=== PATIENT | male | born 1970 | race Caucasian/White ===

== ENCOUNTER 2017-12-02 20:38 | Emergency (ER) | payer MEDICARE ==
[2015-01-22 07:16] VITALS: BMI 30.9
[~2017-12-02 20:38] MED LIST: BENICAR HCT 40-1 TAB PO; PERCOCET 10/3251 TA1 PO; PREVACID30 MG PO; STRIBILD TABLE1 EACH PO; [UNRECOGNIZED DRUG - OTHER] PO
== END 2017-12-03 01:12 | disposition home or self-care (01) ==
LOC: D.ER 20:38
DX: K64.9 Unspecified hemorrhoids (principal); B20 Human immunodeficiency virus [HIV] disease; I10 Essential (primary) hypertension

== ENCOUNTER → 2020-09-04 13:27 | Outpatient (CLI) | payer BC ==
[2015-01-22 07:16] VITALS: BMI 30.9
--- NOTE | 2020-09-04 14:43 | NUR ---
PATIENT CONSENTED FOR A LEFT SHOULDER ARTHROGRAM WITH MRI TO FOLLOW. TIME OUT PERFORMED AT 1430 BY WILLIAM YANG AND DR GOMES. 12 CC ISOVUE 300 WITH 0.16 MULTIHANCE 10 CC NORMAL SALINE WERE USED DURING THE PROCEDURE. PATIENT HAS NO ALLERGIES AND WAS NOT ON ANY BLOOD THINNERS
== END | disposition home or self-care (01) ==
LOC: D.RAD 13:27
PROVIDERS: ATTEND Orthopaedic Surgery
DX: M87.852 Other osteonecrosis, left femur (principal); S43.432A Superior glenoid labrum lesion of left shoulder, initial encounter

== ENCOUNTER → 2020-09-11 11:44 | Outpatient (CLI) | payer BC ==
[2015-01-22 07:16] VITALS: BMI 30.9
== END | disposition home or self-care (01) ==
LOC: D.LABREF 11:44
PROVIDERS: ATTEND Orthopaedic Surgery
DX: M16.12 Unilateral primary osteoarthritis, left hip (principal)

== ENCOUNTER 2020-09-25 08:54 | Observation (INO) | payer BC, OTHER ==
[~2020-09-25] VITALS: Ht 177.8 cm; Wt 98.0 kg
[2020-10-28] MEDS ORDERED: BIKTARVY 50-201 EACH PO (10:17)
[2020-10-28] MEDS ORDERED: METFORMIN HCL500 M1 PO (10:18)
[2020-10-28] MEDS ORDERED: JANUVIA100 MG PO (10:18)
[2020-10-28] MEDS ORDERED: GLIMEPIRIDE1 MG PO (10:19)
[2020-10-29 13:01] LABS: BASOPHILS 0.5 % (0-2); EOSINOPHILS 2.7 % (0-7); HEMATOCRIT 46.7 % (42.0-54.0); HEMOGLOBIN 15.7 g/dL (13.5-17.5); IMMATURE GRANULOCYTES 0.2 % (0-5); LYMPHOCYTE ABS# 2.08 10x3/uL (1.32-3.57); LYMPHOCYTES 25.3 % (15-50); MCH 30.7 pg (26.0-34.0); MCHC 33.6 g/dL (31.0-37.0); MCV 91.2 fL (80.0-100.0); MEAN PLATELET VOLUME 10.5 fL (7.4-10.4); MONOCYTES 6.6 % (2-11); NEUTROPHIL ABS# 5.31 10x3/uL (1.78-5.38); NEUTROPHILS 64.7 % (40-80); RBC 5.12 10x6/uL (4.20-6.10); RDW 12.9 % (11.5-14.5); WBC 8.2 10x3/uL (4.8-10.8)
[2020-10-29 13:04] LABS: PLATELET COUNT 310 10x3/uL (130-400)
[2020-10-29 13:10] LABS: APTT 27.5 SECONDS (22.8-39.4); INR 0.96 (0.85-1.17); PROTIME 11.8 SECONDS (11.6-15.0)
[2020-10-29 13:11] LABS: CALCIUM 9.7 mg/dL (8.5-10.1); CARBON DIOXIDE 25.8 mmol/L (21.0-32.0); CREATININE - SERUM 1.3 mg/dL (0.6-1.3); POTASSIUM - SERUM 3.8 mmol/L (3.5-5.1)
[2020-10-29 13:34] LABS: BILIRUBIN NEGATIVE (NEGATIVE); KETONE NEGATIVE (NEGATIVE); NITRITE NEGATIVE (NEGATIVE); UROBILINOGEN NORMAL mg/dL (< 2)
[2020-11-04] VITALS (14 sets, daily range): BP systolic 86–142; BP diastolic 41–89; BMI 31.0
--- NOTE | 2020-11-04 09:42 | NUR ---
PT OPERATIVE LEG CLEANSED WITH HIBECLENS AND ALCOHOL FROM ABOVE HIP TO CALF CIRCUMFERENTIALLY PRIOR TO PREP. PREPPED WITH CHLORAPREP X2 FROM ABOVE HIP TO CALF CIRCUMFERENTIALLY. RN IN STERILE ATTIRE TO PREP. AFTER STERILE DRAPES APPLIED, OPERATIVE SITE CHLORAPREPPED AGAIN. PLASMA BLADE SET TO 6/8 GROUNDING PAD RIGHT FLANK TRAFFIC KEPT TO MINIMUM IN ROOM
--- NOTE | 2020-11-04 11:10 | NUR ---
RECEIVED TO ROOM 1211 FROM PACU. A/O X3. AROUSES EASILY TO VERBAL STIMULATION. DRESSING TO LEFT HIP IS DRY AND INTACT. KESHA'S IN PLACE. DENIES NEEDS.
--- NOTE | 2020-11-04 15:51 | NUR ---
SIGNIFICANT OTHER BROUGHT FOOD IN. ATE ALL OF MEAL. DENIES NEEDS.
--- NOTE | 2020-11-04 16:33 | NUR ---
AMBULATED 50 FEET WITH RW AND MIN ASSIST OF ONE. NO C/O INCREASED PAIN WITH ACTIVITY. SITTING UP ON SIDE OF BED AT THIS TIME.
--- NOTE | 2020-11-04 17:55 | MORECARE ---
CASE MANAGEMENT DISCHARGE SUMMARY PATIENT: MAURA LICONA UNIT: [id number] ADM DATE: 11/04/20 AGE: 50 : 68 SEX: M ROOM/BED: D.1211 AUTHOR: LAINE,DOC PHYSICIAN: REFERRING PHYSICIAN: GONZÁLEZ LOZA DO DATE OF SERVICE: 11/04/20 Case Management Discharge Planning Summary COMMENTS ENTERED DATE: 11/04/20 17:53 CT COMMENT TYPE: Discharge Planning REVIEWER: Darion Reynoso CM met with patient to complete DC plan and to evaluate needs. Patient lives independently with his significant other, González Ma, . Patient stated that his home is safe and has electricity and running water. Patient stated that his home has 2 levels with 3 sets of stairs to enter and he is worried about being able to manage the steps. Patient stated that he has no problems paying for medications and he fills his medications at [facility]. Patient stated that his primary care physician is Dr. Violet Hall. At discharge, the patient plans to return home and feels this is a safe discharge. CM discussed availability of home health, rehab services, and medical equipment. Patient declined HHS, SNF, and DME. Patient stated that the Walker and Bedside commode that Dr. Loza arrived at his home and the walker is visible in the room. Patient would like Out Patient PT with [facility] but stated that he would like to talk to Dr. Loza about HHS because of the stairs to his home. JUDAH for [facility] and [facility] signed and placed in chart. CM spoke with Kobe with at [facility], Clinical documents faxed. Patient voiced no other needs at this time and is satisfied with DC plan. Transportation provider at discharge will be with González. CM will continue to follow and will assist as needed with dc plans/needs. DCP REVIEW SUMMARY ANTICIPATED D/C DATE: EXPECTED LOS : CASE STATUS: DCP Initiated INITIAL REVIEW: 11/04/2020 INITIAL REVIEWER: Darion Reynoso FINAL DISCHARGE DISPOSITION: : FINAL REVIEWER: FINAL REVIEW DATE: DCP Focus Questions & Answers DCP Evaluation QUESTION: ANSWER Family / Caregiver's ability to cope with chronic illness: : a. Adequate (ability to meet patient's medical needs, ensures patient attends medical appts.) Patient gives permission to discuss discharge plans with: (name, relationship and number) : significant other, González Ma, . Patient's ability to cope with chronic illness : d. No chronic illness Patient's current cognitive status: : *Oriented to person, place, situation, time and present Patient and/or caregiver agree upon recommended discharge plan? : Yes Physical Status: : Independent with ADL's Family / Caregiver's ability to cope with chronic illness: : a. Adequate (ability to meet patient's medical needs, ensures patient attends medical appts.) Functional screen assessment: : Basic needs can adequately be met by self Does the patient have the ability to pay for or attain post discharge needs / services? : Yes Living Arrangements: : Home with Spouse/Significant Other Is there a likelihood that the patient will require additional services to return to the preadmission environment? : No Equipment needed for post hospitalization: : None Baseline cognitive status: : *Oriented to person, place, situation, time and present Patient with capacity for self-care or can be cared for in same environment as prior to hospitalization? : Yes Physical environment modification needed / anticipated for discharge: : No Medication Management: : Patient states can afford medications Medication Management: : Patient states can read and understand medication labels Pharmacy name(s): : [facility] Does Patient have transportation to get home and to follow-up medical appointments when discharged from the hospital? : Yes Would patient like to participate in any Care Coordination programs (if applicable): : Not applicable Does the patient have electricity at home? : Yes Does the patient have running water in their house? : Yes Equipment in use: : None Mental health screen: : No mental health history DCP Re-evaluation QUESTION: ANSWER Would patient like to participate in any Care Coordination programs (if applicable): : Not applicable PATIENT: MAURA LICONA ENCOUNTER: [id number] MEDICAL RECORD#: [id number] ADMISSION DATE: 11/04/2020 DISCHARGE DATE: ATTENDING MD: GONZÁLEZ BOUDREAUX : AGE: 50 MARITAL STATUS: S DC PLAN ID: [id number] FACILITY: [facility] PRINTED ON: 11/04/20 17:55 CT All edits/amendments must be made on the electronic document DICTATION DATE: 11/04/201754 FINGER BUFF SEWER: DEB 11/04/201754 RPT#: [id number] DC DATE: STATUS: ADM IN [facility] [address] [facility] [place] [address] END OF REPORT
--- NOTE | 2020-11-04 18:27 | NUR ---
ATE ONLY A SMALL PORTION OF SUPPER TRAY. WASN'T HUNGRY BUT LOVES BROCCOLI. DENIES NEEDS. NO CHANGES NOTED.
--- NOTE | 2020-11-04 20:00 | NUR ---
AROUSED EASILY, DENIES PAIN OR NEEDS AT THIS TIME, SEE SHIFT ASSESSMENT, CALL LIGHT IN REACH
--- NOTE | 2020-11-04 20:17 | OP ---
PATIENT NAME: MAURA LICONA MEDICAL RECORD: [id number] :68 LOCATION:D.M3 D.1211 ADMISSION DATE:11/04/20 SURGEON: GONZÁLEZ LOZA DO DATE OF OPERATION: 11/04/2020 PROCEDURE PERFORMED: Left total hip arthroplasty. 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 INDICATIONS: Mr. Licona is a 50-year-old male who has had left hip pain for quite some time. He was tired of dealing with it. He got x-rays and MRI showing AVN. I asked if he wanted to do a core decompression and he said he would rather have his hip replaced due to the longer recovery and the fact that it had been hurting him so bad for so long. He was aware of the risks of this including increased risk for infection due to his immunity status, but he said his CD4 count was good. He also was aware of the risks of fracture, bleeding, damage to nerves and vessels in the area, continued pain, need for further surgery, blood clots, failure of implants, fracture and even and he signed the consent. SURGEON: González Loza DO DESCRIPTION OF PROCEDURE: The patient was taken to the operative suite, laid in supine position, given general anesthetic and intubated. He was given 2 grams of Ancef, 80 mg of gentamicin and a gram of TXA. The left hip was then prepped and draped in sterile fashion. Timeout was performed. Everyone was in agreeance with the correct side, site, patient and procedure. I then began by making an incision over the tensor fasciae latae muscle. Made careful dissection down to the muscle belly, took the fascia anteriorly and muscle belly posteriorly. I then opened the rectus interval, took the rectus medially and the tensor fascia mickey laterally, down the ascending branch of lateral femoral circumflex artery and tied it off, coagulated and cut it. I then coagulated any of the bleeding with Aquamantys at that time. We then cleared out the capsule, put Hohmann's around the neck and opened up the capsule, tagged it, put Hohmann's intracapsularly. I got an x-ray to ensure I was around the neck and made a neck cut. I then removed the head and put in the Charnley. I then removed the labrum and the pulvinar, and coagulated any bleeding with Aquamantys. I then went to [facility], reamed up to 56 under fluoroscopy. I then locked and malleted in the 56 cup and the liner and made sure it was secure with a Marcia and it was very secure. I then exposed the femur, did some releasing on the iliofemoral ligament as well as the capsule and used the canal finder and the cookie cutter and then broached up to a 13. I then trialled up to a +6 neck and it was not quite long enough. I then did a 14 stem in and with a +6 neck and it finally was equal length to the right side. I then reduced that, removed the trials of the femur and then irrigated and then put in the 14 stem with a +6 neck with dual mobility head and reduced it. After that was reduced, we got x-rays and there were no fractures seen in the femur and the leg lengths were equal, right and left. On AP pelvis the lesser trochanter were equal. I then irrigated with 10% povidine-iodine and 500 mL of normal saline solution. Kyree Stone, certified professional controller then irrigated that out with over a liter of normal saline and then closed the fascia with #1 Vicryl in a [id number]-bgspx and then a running locking stitch fashion and then sewed a Kerecis 3 x 3 patch at the apex of the incision as it often has hard time OPERATIVE REPORT [id number] MAURA LICONA healing and then closed the skin with 2-0 Vicryl in inverted interrupted fashion, 4-0 Monocryl ran on the skin and a Prineo glue placed on the skin. Once the glue was dried, he was dressed with Telfa and Tegaderm, awakened and taken to recovery in stable condition. BLOOD LOSS: Approximately 300 mL. COMPLICATIONS: None. He was given another gram of TXA after closing. TRANSINT:[id number] Voice Confirmation ID: [id number] DOCUMENT ID: [id number] GONZÁLEZ LOZA DO at 2017 CC: [id number] DICTATION DATE: 11/04/20 1027 EDITORIAL INTERN: 11/04/[address] [facility] [address] [facility] [place] [address]
[2020-11-05 04:00] VITALS: BP 93/52
[2020-11-05 07:11] VITALS: BP 99/50
--- NOTE | 2020-11-05 08:00 | NUR ---
PT SEEN AND ASSESSED. AMBULATED WITH WALKER AND ASSIT TO BR. DRESSING TO LEFT GROIN CLEAN DRY AND INTACT. KESHA CHAN AND SCDS ON BILAT. FAMILY AT BEDSIDE. PT INSTRUCTED TO USE CALL LIGHT WHEN DONE IN BATHROOM
[2020-11-05 08:02] LABS: BASOPHILS 0.2 % (0-2); EOSINOPHILS 0.7 % (0-7); HEMATOCRIT 41.1 % (42.0-54.0); HEMOGLOBIN 13.3 g/dL (13.5-17.5); IMMATURE GRANULOCYTES 0.3 % (0-5); LYMPHOCYTE ABS# 2.62 10x3/uL (1.32-3.57); LYMPHOCYTES 17.6 % (15-50); MCH 30.2 pg (26.0-34.0); MCHC 32.4 g/dL (31.0-37.0); MCV 93.4 fL (80.0-100.0); MONOCYTES 8.3 % (2-11); NEUTROPHIL ABS# 10.84 10x3/uL (1.78-5.38); NEUTROPHILS 72.9 % (40-80); PLATELET COUNT 334 10x3/uL (130-400); RDW 13.2 % (11.5-14.5); WBC 14.9 10x3/uL (4.8-10.8)
[2020-11-05 08:25] LABS: ALBUMIN 3.5 g/dL (3.4-5.0); ANION GAP 16.4 mmol/L (8-16); BILIRUBIN - TOTAL 1.17 mg/dL (0.2-1.3); CALCIUM 8.2 mg/dL (8.5-10.1); CARBON DIOXIDE 25.5 mmol/L (21.0-32.0); CREATININE - SERUM 1.8 mg/dL (0.6-1.3); POTASSIUM - SERUM 3.9 mmol/L (3.5-5.1); PROTEIN - SERUM 6.7 g/dL (6.4-8.2)
[2020-11-05 11:39] VITALS: BP 103/62
[2020-11-05 13:06] VITALS: Ht 177.8 cm; Wt 98.0 kg
[2020-11-05 15:35] VITALS: BP 107/67
--- NOTE | 2020-11-05 18:23 | MORECARE ---
CASE MANAGEMENT DISCHARGE SUMMARY PATIENT: MAURA LICONA UNIT: [id number] ADM DATE: 11/04/20 AGE: 50 : 68 SEX: M ROOM/BED: D.1211 AUTHOR: LAINE,DOC PHYSICIAN: REFERRING PHYSICIAN: GONZÁLEZ LOZA DO DATE OF SERVICE: 11/05/20 Case Management Discharge Planning Summary COMMENTS ENTERED DATE: 11/04/20 17:53 CT COMMENT TYPE: Discharge Planning REVIEWER: Darion Reynoso CM met with patient to complete DC plan and to evaluate needs. Patient lives independently with his significant other, González Ma, . Patient stated that his home is safe and has electricity and running water. Patient stated that his home has 2 levels with 3 sets of stairs to enter and he is worried about being able to manage the steps. Patient stated that he has no problems paying for medications and he fills his medications at [facility]. Patient stated that his primary care physician is Dr. Violet Hall. At discharge, the patient plans to return home and feels this is a safe discharge. CM discussed availability of home health, rehab services, and medical equipment. Patient declined HHS, SNF, and DME. Patient stated that the Walker and Bedside commode that Dr. Loza arrived at his home and the walker is visible in the room. Patient would like Out Patient PT with [facility]ued[facility] but stated that he would like to talk to Dr. Loza about HHS because of the stairs to his home. JUDAH for [facility] and Jennifer[facility] signed and placed in chart. CM spoke with Kobe with at [facility], Clinical documents faxed. Patient voiced no other needs at this time and is satisfied with DC plan. Transportation provider at discharge will be with González. CM will continue to follow and will assist as needed with dc plans/needs. DCP REVIEW SUMMARY ANTICIPATED D/C DATE: EXPECTED LOS : CASE STATUS: DCP Initiated INITIAL REVIEW: 11/04/2020 INITIAL REVIEWER: Darion Reynoso FINAL DISCHARGE DISPOSITION: : FINAL REVIEWER: FINAL REVIEW DATE: DCP Focus Questions & Answers DCP Evaluation QUESTION: ANSWER Patient and/or caregiver agree upon recommended discharge plan? : Yes Patient's current cognitive status: : *Oriented to person, place, situation, time and present Patient's ability to cope with chronic illness : d. No chronic illness Patient gives permission to discuss discharge plans with: (name, relationship and number) : significant other, González Ma, . Family / Caregiver's ability to cope with chronic illness: : a. Adequate (ability to meet patient's medical needs, ensures patient attends medical appts.) Does the patient have the ability to pay for or attain post discharge needs / services? : Yes Functional screen assessment: : Basic needs can adequately be met by self Family / Caregiver's ability to cope with chronic illness: : a. Adequate (ability to meet patient's medical needs, ensures patient attends medical appts.) Physical Status: : Independent with ADL's Equipment needed for post hospitalization: : None Is there a likelihood that the patient will require additional services to return to the preadmission environment? : No Living Arrangements: : Home with Spouse/Significant Other Patient with capacity for self-care or can be cared for in same environment as prior to hospitalization? : Yes Baseline cognitive status: : *Oriented to person, place, situation, time and present Physical environment modification needed / anticipated for discharge: : No Medication Management: : Patient states can afford medications Medication Management: : Patient states can read and understand medication labels Pharmacy name(s): : [facility] Does Patient have transportation to get home and to follow-up medical appointments when discharged from the hospital? : Yes Would patient like to participate in any Care Coordination programs (if applicable): : Not applicable Does the patient have electricity at home? : Yes Does the patient have running water in their house? : Yes Equipment in use: : None Mental health screen: : No mental health history DCP Re-evaluation QUESTION: ANSWER Would patient like to participate in any Care Coordination programs (if applicable): : Not applicable PATIENT: MAURA LICONA ENCOUNTER: [id number] MEDICAL RECORD#: [id number] ADMISSION DATE: 11/04/2020 DISCHARGE DATE: ATTENDING MD: GONZÁLEZ BOUDREAUX : AGE: 50 MARITAL STATUS: S DC PLAN ID: [id number] FACILITY: [facility] PRINTED ON: 11/05/20 18:23 CT All edits/amendments must be made on the electronic document DICTATION DATE: 11/05/201822 ONLINE EDITOR: DEB 11/05/201822 RPT#: [id number] DC DATE: STATUS: ADM IN [facility] [address] [place] [address] END OF REPORT
--- NOTE | 2020-11-05 18:31 | NUR ---
PT RESTING WITH EYES CLOSED AND SNORING. FALL/BED ALARM ON AND ACTIVE. SCDS AND KESHA HOSE ON. CPM CURRENTLY IN PLACE. LARGE BAG OF ICE GIVEN TO PATIENT FOR PAIN CONTROL-DOES NOT WANT THE "LITTLE BAGS" ANYMORE. CALL LIGHT IN REACH
[2020-11-05 20:00] VITALS: BP 121/67
--- NOTE | 2020-11-05 20:00 | NUR ---
RESTING IN BED EYES CLOSED AROUSED EASILY, DENIES PAIN OR NEEDS AT THIS TIME, SEE SHIFT ASSESSMENT CALL LIGHT IN REACH
[2020-11-06 04:00] VITALS: BP 119/64
[2020-11-06] MEDS ORDERED: ELIQUIS2.5 MG PO (07:39)
[2020-11-06] MEDS ORDERED: VISTARIL50 MG PO (07:40)
[2020-11-06] MEDS ORDERED: PERCOCET 10-321 EAC1 PO (07:40)
[2020-11-06 08:00] VITALS: BP 133/71
[2020-11-06 08:25] LABS: BASOPHILS 0.2 % (0-2); HEMATOCRIT 39.1 % (42.0-54.0); HEMOGLOBIN 13.1 g/dL (13.5-17.5); IMMATURE GRANULOCYTES 0.3 % (0-5); LYMPHOCYTE ABS# 1.64 10x3/uL (1.32-3.57); LYMPHOCYTES 14.2 % (15-50); MCH 30.5 pg (26.0-34.0); MCHC 33.5 g/dL (31.0-37.0); MEAN PLATELET VOLUME 10.5 fL (7.4-10.4); MONOCYTES 9.2 % (2-11); NEUTROPHIL ABS# 8.69 10x3/uL (1.78-5.38); NEUTROPHILS 75.1 % (40-80); PLATELET COUNT 283 10x3/uL (130-400); RDW 12.9 % (11.5-14.5); WBC 11.6 10x3/uL (4.8-10.8)
[2020-11-06 08:43] LABS: ALBUMIN 3.2 g/dL (3.4-5.0); ANION GAP 13.2 mmol/L (8-16); BILIRUBIN - TOTAL 1.1 mg/dL (0.2-1.3); CALCIUM 8.5 mg/dL (8.5-10.1); CARBON DIOXIDE 26.1 mmol/L (21.0-32.0); PROTEIN - SERUM 6.5 g/dL (6.4-8.2)
[2020-11-06 08:44] LABS: CREATININE - SERUM 1.3 mg/dL (0.6-1.3); POTASSIUM - SERUM 3.3 mmol/L (3.5-5.1)
[2020-11-06 08:58] LABS: MCV 90.9 fL (80.0-100.0)
--- NOTE | 2020-11-06 09:30 | NUR ---
PT SITTING UP IN CHAIR AT BEDSIDE. RESP EVEN AND UNLABORED. REPORTS PAIN 4/10 AT THIS TIME. SALINE LOC TO LEFT HAND. SITE WITHOUT REDNESS OR EDEMA. DRESSING TO LEFT ANTERIOR HIP C/D/I. DENIES FURTHER NEEDS AT THIS TIME. CL WITHIN REACH. ENCOURAGED TO CALL WITH NEEDS. CONTINUE POC
--- NOTE | 2020-11-06 15:02 | MORECARE ---
CASE MANAGEMENT DISCHARGE SUMMARY PATIENT: MAURA LICONA UNIT: [id number] ADM DATE: 11/04/20 AGE: 50 : 68 SEX: M ROOM/BED: D.1211 AUTHOR: LAINE,DOC PHYSICIAN: REFERRING PHYSICIAN: GONZÁLEZ LOZA DO DATE OF SERVICE: 11/06/20 Case Management Discharge Planning Summary COMMENTS ENTERED DATE: 11/06/20 14:46 CT COMMENT TYPE: Discharge Planning REVIEWER: Belgica Loza visited this am. The patient has been discharged. He is requesting home health at this time as he is anticipating difficulty negotiating the stairs at home. CM visited and discussed home health. Provided him a list of providers. He reviewed with his significant other and [facility] was chosen. Patient contact information checked and address verified on the face sheet. Patient choice form completed. Telephone call to [facility] and spoke with Joceline. Faxed referral information. [facility] will advise patient of visit date. ENTERED DATE: 11/04/20 17:53 CT COMMENT TYPE: Discharge Planning REVIEWER: Darion Reynoso CM met with patient to complete DC plan and to evaluate needs. Patient lives independently with his significant other, González Ma, . Patient stated that his home is safe and has electricity and running water. Patient stated that his home has 2 levels with 3 sets of stairs to enter and he is worried about being able to manage the steps. Patient stated that he has no problems paying for medications and he fills his medications at [facility]. Patient stated that his primary care physician is Dr. Violet Hall. At discharge, the patient plans to return home and feels this is a safe discharge. CM discussed availability of home health, rehab services, and medical equipment. Patient declined HHS, SNF, and DME. Patient stated that the Walker and Bedside commode that Dr. Loza arrived at his home and the walker is visible in the room. Patient would like Out Patient PT with [facility] Rued[facility] but stated that he would like to talk to Dr. Loza about HHS because of the stairs to his home. JUDAH for [facility] and Jennifer[facility] signed and placed in chart. CM spoke with Kobe with at [facility], Clinical documents faxed. Patient voiced no other needs at this time and is satisfied with DC plan. Transportation provider at discharge will be with González. CM will continue to follow and will assist as needed with dc plans/needs. DCP REVIEW SUMMARY ANTICIPATED D/C DATE: EXPECTED LOS : CASE STATUS: DCP Initiated INITIAL REVIEW: 11/04/2020 INITIAL REVIEWER: Darion Reynoso FINAL DISCHARGE DISPOSITION: : FINAL REVIEWER: FINAL REVIEW DATE: DCP Focus Questions & Answers DCP Evaluation QUESTION: ANSWER Patient and/or caregiver agree upon recommended discharge plan? : Yes Family / Caregiver's ability to cope with chronic illness: : a. Adequate (ability to meet patient's medical needs, ensures patient attends medical appts.) Patient's current cognitive status: : *Oriented to person, place, situation, time and present Patient's ability to cope with chronic illness : d. No chronic illness Patient gives permission to discuss discharge plans with: (name, relationship and number) : significant other, González Ma, . Does the patient have the ability to pay for or attain post discharge needs / services? : Yes Functional screen assessment: : Basic needs can adequately be met by self Family / Caregiver's ability to cope with chronic illness: : a. Adequate (ability to meet patient's medical needs, ensures patient attends medical appts.) Physical Status: : Independent with ADL's Equipment needed for post hospitalization: : None Is there a likelihood that the patient will require additional services to return to the preadmission environment? : No Living Arrangements: : Home with Spouse/Significant Other Patient with capacity for self-care or can be cared for in same environment as prior to hospitalization? : Yes Baseline cognitive status: : *Oriented to person, place, situation, time and present Physical environment modification needed / anticipated for discharge: : No Medication Management: : Patient states can read and understand medication labels Medication Management: : Patient states can afford medications Pharmacy name(s): : [facility] Does Patient have transportation to get home and to follow-up medical appointments when discharged from the hospital? : Yes Would patient like to participate in any Care Coordination programs (if applicable): : Not applicable Does the patient have electricity at home? : Yes Does the patient have running water in their house? : Yes Equipment in use: : None Mental health screen: : No mental health history DCP Re-evaluation QUESTION: ANSWER Would patient like to participate in any Care Coordination programs (if applicable): : Not applicable PATIENT: MAURA LICONA ENCOUNTER: [id number] MEDICAL RECORD#: [id number] ADMISSION DATE: 11/04/2020 DISCHARGE DATE: ATTENDING MD: GONZÁLEZ BOUDREAUX : AGE: 50 MARITAL STATUS: S DC PLAN ID: [id number] FACILITY: [facility] PRINTED ON: 11/06/20 15:02 CT All edits/amendments must be made on the electronic document DICTATION DATE: 11/06/201501 HVAC CONTROLS TECHNICIAN: DEB 11/06/201501 RPT#: [id number] DC DATE: STATUS: ADM IN [facility] [address] [place] [address] END OF REPORT
--- NOTE | 2020-11-06 15:16 | MORECARE ---
CASE MANAGEMENT DISCHARGE SUMMARY PATIENT: MAURA LICONA UNIT: [id number] ADM DATE: 11/04/20 AGE: 50 : 68 SEX: M ROOM/BED: D.1211 AUTHOR: LAINE,DOC PHYSICIAN: REFERRING PHYSICIAN: GONZÁLEZ LOZA DO DATE OF SERVICE: 11/06/20 Case Management Discharge Planning Summary COMMENTS ENTERED DATE: 11/06/20 14:46 CT COMMENT TYPE: Discharge Planning REVIEWER: Belgica Loza visited this am. The patient has been discharged. He is requesting home health at this time as he is anticipating difficulty negotiating the stairs at home. CM visited and discussed home health. Provided him a list of providers. He reviewed with his significant other and [facility] was chosen. Patient contact information checked and address verified on the face sheet. Patient choice form completed. Telephone call to [facility] and spoke with Joceline. Faxed referral information. [facility] will advise patient of visit date. ENTERED DATE: 11/04/20 17:53 CT COMMENT TYPE: Discharge Planning REVIEWER: Darion Reynoso CM met with patient to complete DC plan and to evaluate needs. Patient lives independently with his significant other, González Ma, . Patient stated that his home is safe and has electricity and running water. Patient stated that his home has 2 levels with 3 sets of stairs to enter and he is worried about being able to manage the steps. Patient stated that he has no problems paying for medications and he fills his medications at [facility]. Patient stated that his primary care physician is Dr. Violet Hall. At discharge, the patient plans to return home and feels this is a safe discharge. CM discussed availability of home health, rehab services, and medical equipment. Patient declined HHS, SNF, and DME. Patient stated that the Walker and Bedside commode that Dr. Loza arrived at his home and the walker is visible in the room. Patient would like Out Patient PT with [facility] but stated that he would like to talk to Dr. Loza about HHS because of the stairs to his home. JUDAH for [facility], [facility] and [facility] signed and placed in chart. CM spoke with Kobe with at [facility], [facility], Clinical documents faxed. Patient voiced no other needs at this time and is satisfied with DC plan. Transportation provider at discharge will be with González. CM will continue to follow and will assist as needed with dc plans/needs. DCP REVIEW SUMMARY ANTICIPATED D/C DATE: EXPECTED LOS : CASE STATUS: DCP Initiated INITIAL REVIEW: 11/04/2020 INITIAL REVIEWER: Darion Reynoso FINAL DISCHARGE DISPOSITION: : FINAL REVIEWER: FINAL REVIEW DATE: DCP Focus Questions & Answers DCP Evaluation QUESTION: ANSWER Patient and/or caregiver agree upon recommended discharge plan? : Yes Family / Caregiver's ability to cope with chronic illness: : a. Adequate (ability to meet patient's medical needs, ensures patient attends medical appts.) Patient's current cognitive status: : *Oriented to person, place, situation, time and present Patient's ability to cope with chronic illness : d. No chronic illness Patient gives permission to discuss discharge plans with: (name, relationship and number) : significant other, González Ma, . Does the patient have the ability to pay for or attain post discharge needs / services? : Yes Functional screen assessment: : Basic needs can adequately be met by self Family / Caregiver's ability to cope with chronic illness: : a. Adequate (ability to meet patient's medical needs, ensures patient attends medical appts.) Physical Status: : Independent with ADL's Equipment needed for post hospitalization: : None Is there a likelihood that the patient will require additional services to return to the preadmission environment? : No Living Arrangements: : Home with Spouse/Significant Other Patient with capacity for self-care or can be cared for in same environment as prior to hospitalization? : Yes Baseline cognitive status: : *Oriented to person, place, situation, time and present Physical environment modification needed / anticipated for discharge: : No Medication Management: : Patient states can read and understand medication labels Medication Management: : Patient states can afford medications Pharmacy name(s): : [facility] Does Patient have transportation to get home and to follow-up medical appointments when discharged from the hospital? : Yes Would patient like to participate in any Care Coordination programs (if applicable): : Not applicable Does the patient have electricity at home? : Yes Does the patient have running water in their house? : Yes Equipment in use: : None Mental health screen: : No mental health history DCP Re-evaluation QUESTION: ANSWER Would patient like to participate in any Care Coordination programs (if applicable): : Not applicable PATIENT: MAURA LICONA ENCOUNTER: [id number] MEDICAL RECORD#: [id number] ADMISSION DATE: 11/04/2020 DISCHARGE DATE: 11/06/2020 ATTENDING MD: GONZÁLEZ BOUDREAUX : AGE: 50 MARITAL STATUS: S DC PLAN ID: [id number] FACILITY: [facility] PRINTED ON: 11/06/20 15:16 CT All edits/amendments must be made on the electronic document DICTATION DATE: 11/06/201515 STERILE PROCESS COORDINATOR: DEB 11/06/20 151 RPT#: [id number] DC DATE:11/06/20 STATUS: DIS IN [facility] [address] [place] [address] END OF REPORT
== END 2020-11-06 15:03 | disposition home or self-care (01) ==
LOC: D.M3 11-04 06:40 → D.SDCHOLD 11-04 06:40 → D.M3 11-04 10:53 → D.SDCHOLD 11-04 11:00 → OBSVTIME 11-05 10:52 → D.M3 11-06 15:03
PROVIDERS: Family Medicine; ADMIT Orthopaedic Surgery; ATTEND Orthopaedic Surgery
DX: M87.852 Other osteonecrosis, left femur (principal); I10 Essential (primary) hypertension; E11.9 Type 2 diabetes mellitus without complications; K21.9 Gastro-esophageal reflux disease without esophagitis; Z79.84 Long term (current) use of oral hypoglycemic drugs; E78.5 Hyperlipidemia, unspecified; M17.9 Osteoarthritis of knee, unspecified; E87.6 Hypokalemia